=== PATIENT | female | born 1960 | race Two or more races ===

== ENCOUNTER 2024-08-05 09:48 | Inpatient (IN) | payer OTHER, MEDICAID ==
[~2024-08-05] VITALS: Ht 165.1 cm; Wt 77.1 kg
--- NOTE | 2024-08-05 10:02 | ECG ---
[facility] Test Date: 2024-08-05 Test Time: 09:57:10 Pat Name: LIZ CEE Department: ER Room: Gender: F Office Clinician: JERRY : 1960 Requested By: DEBORA HAMILTON Order Number: [id number] Reading MD: Robin Hernandez Measurements Intervals [place] Rate: 74 P: 56 MS: 165 QRS: 56 QRSD: 81 T: 43 QT: 383 QTc: 425 Interpretive Statements Sinus rhythm Low voltage, precordial leads Electronically Signed On 08-05-2024 12:54:02 PST by Robin Hernandez Please click the below link to view image of tracing.
--- NOTE | 2024-08-05 10:09 | ED.PDOC ---
HPI (NEURO) HPI Comments 63 y.o female sent to the ED by sheet rock taper helper with binocular diplopia today for high level of neurological care. Patient reports x 2-3 days having complaint, had an appointment today and had eye dilation with dizziness s/p examination. Patient denies any facial droops, slurred speech, nausea, vomiting, confusion, chest pain or SOB. Patient does mention feeling more tired than usual but no focal weakness or numbness reported. Patient's sheet rock taper helper sent a communication with the patient stating that the patient is having binocular diplopia and on his exam mild 6th nerve palsy right eye with vision distortion, headaches and polymyalgia rheumatica symptoms. Recommended workup for giant cell arteritis with ESR, CRP, +/- temporal artery biopsy, as well as MRI with and without contrast for possible optic neuritis. Patient additional complains of a headache located on bilateral temporal areas s/p lumbar puncture procedure that she was told ruled out MS back in March of 2024. Chief Complaint: Eye Problem Time Seen by MD: 09:55 Reviewed Notes: Nurses Notes, Medications, Allergies Information Source: Patient Mode of Arrival: Ambulatory Severity: Moderate Headache Severity: Moderate Onset: At rest Symptoms: Change of vision History of: Hypertension Modifying factors: Nothing Associated Signs and Symptoms: Blurred Vision Past Medical History PAST MEDICAL HISTORY: High Lipids, HTN Past Medical History (Other): chronic pain Surgical History (Other): lumbar puncture, bilateral feet and right hand. Constitutional: denies: chills, diaphoresis, fatigue, fever, malaise, sweats, weakness, others EENTM: reports: double vision (right eye ); denies: blurred vision, ear bleeding, ear discharge, ear drainage, ear pain, ear ringing, eye pain, eye redness, hearing loss, mouth pain, mouth swelling, nasal discharge, nose blee ding, nose congestion, nose pain, photophobia, tearing, throat pain, throat swelling, voice changes, others Respiratory: denies: cough, hemoptysis, orthopnea, SOB at rest, shortness of breath, SOB with excertion, stridor, wheezing, others Cardiovascular: denies: chest pain, dizzy spells, diaphoresis, Dyspnea on exertion, edema, irregular heart beat, left arm pain, lightheadedness, palpitations, PND, syncope, others Gastrointestinal: denies: abdomen distended, abdominal pain, blood streaked bowels, constipated, diarrhea, dysphagia, difficulty swallowing, hematemesis, m melly, nausea, poor appetite, poor fluid intake, rectal bleeding, rectal pain, vomiting, others Genitourinary: denies: abnormal vagina bleeding, burning, dyspareunia, dysuria, flank pain, frequency, hematuria, incontinence, pain, , vagina discharge, urgency, others Neurological: reports: headache; denies: dizziness, fainting, left sided numbness, left sided weakness, numbness, paresthesia, pre-existing deficit, right sided numbness, right sided weakness, seizure, speech problems, tingling, tremors, weakness, others Musculoskeletal: denies: back pain, gout, joint pain, joint swelling, muscle pain, muscle stiffness, neck pain, others Integumetry: denies: bruises, change in color, change in hair/nails, dryness, laceration, lesions, lumps, rash, wounds, others Allergic/Immunocompromised: denies: Difficulty Healing, Frequent Infections, Hives, Itching, others Hematologic/Lymphatic: denies: anemia, blood clots, easy bleeding, easy bruising, swollen glands, others Endocrine: denies: excessive hunger, excessive sweating, excessive thirst, excessive urination, flushing, intolerance to cold, intolerance to heat, unexplained weight gain, unexplained weight loss, others Psychiatric: denies: anxiety, bipolar disorder, depression, hopeless, panic disorder, schizophrenia, sleepless, suicidal, others All Other Systems: Reviewed and Negative Physical Exam General Appearance: No Apparent Distress HEENT: Other (Pupils symmetric and dilated, extraocular movements intact. Mild soft tissue tenderness bilateral temporal areas without soft tissue swelling or discoloration.) Neck: Full Range of Motion, Non-Tender, Normal Inspection Respiratory: Lungs Clear, No Accessory Muscle Use, No Respiratory Distress, Normal Breath Sounds Cardiovascular: No Edema, No JVD, Regular Rate/Rhythm Breast Exam: Deferred Gastrointestinal: Non Tender, Soft Genitalia: Deferred Pelvic: Deferred Rectal: Deferred Extremities: Normal inspection, Normal range of motion, Non-tender, No pedal edema Neurologic: Alert, Normal Affect, Normal Mood, Other (Ambulatory without dif ficulty. No gross focal deficit. Pupils symmetric and dilated. Extraocular movements intact, no other cranial nerve deficit appreciated.) Cerebellar Function: NOT DONE Reflexes: NOT DONE Skin: Dry, Normal Color, Warm Lymphatic: NOT DONE EKG EKG : Comments Sinus rhythm, rate 74, normal intervals, normal axis, normal QRS, no ST/T changes. Was a procedure done? Was a procedure done?: No Differential Diagnosis (SZ) Seizure: CVA/TIA, Hypocalcemia, Hypoglycemia, Hyponatremia, Hypoxemia, Mass Lesion, Encephalopathy CVA: Electrolyte Imbalance General Weakness: Dysrhythmia Headache: Migraine, Post Lumber Puncture, Intracerebral Hemorrhage, Subarachnoid Hemorrhage, Subdural Hemorrhage, Trigeminal Neuralgia, Other (Temporal arteritis, optic neuritis, polymyalgia rheumatica, among others) X-Ray, Labs, Meds, VS Vital Signs Date Time Temp Pulse Resp B/P (MAP) Pulse Ox O2 Delivery O2 Flow Rate FiO2 08/05/24 10:34 69 16 118/65 (82) 95 08/05/24 10:34 69 16 95 08/05/24 10:01 97.2 75 15 130/58 (82) 96 08/05/24 09:57 74 Lab Test 08/05/24 11:50 08/05/24 10:50 Range/Units Troponin I High Sensitivity 5 3 L </=34 ng/L White Blood Count 7.4 4.4-10.8 10^3/uL Red Blood Count 4.47 4.0-5.20 10^6/uL Hemoglobin 13.2 12.2-16.2 g/dL Hematocrit 38.7 36.0-46.0 % Mean Corpuscular Volume 86.6 80.0-100.0 fL Mean Corpuscular Hemoglobin 29.5 28.0-32.0 pg Mean Corpuscular Hemoglobin Concent 34.1 32.0-36.0 g/dL Red Cell Distribution Width 13.4 11.8-14.3 % Platelet Count 263 140-450 10^3/uL Mean Platelet Volume 6.7 L 6.9-10.8 fL Neutrophils (%) (Auto) 46.0 37.0-80.0 % Lymphocytes (%) (Auto) 44.5 10.0-50.0 % Monocytes (%) (Auto) 7.2 0.0-12.0 % Eosinophils (%) (Auto) 1.7 0.0-7.0 % Basophils (%) (Auto) 0.6 0.0-2.0 % Neutrophils # (Auto) 3.4 1.6-8.6 10 ^3/uL Lymphocytes # (Auto) 3.3 0.4-5.4 10 ^3/uL Monocytes # (Auto) 0.5 0-1.3 10 ^3/uL Eosinophils # (Auto) 0.1 0-0.8 10 ^3/uL Basophils # (Auto) 0 0-0.2 10 ^3/uL Nucleated Red Blood Cells 0.0 % Erythrocyte Sedimentation Rate 7 0-20 mm/hr Sodium Level 139 136-145 mmol/L Potassium Level 4.2 3.5-5.1 mmol/L Chloride Level 106 98-107 mmol/L Carbon Dioxide Level 28 20-31 mmol/L Anion Gap 5 5-15 Blood Urea Nitrogen 7 L 9-23 mg/dL Creatinine 0.79 0.550-1.02 mg/dL Glomerular Filtration Rate Calc 83 >90 mL/min BUN/Creatinine Ratio 8.9 L 10.0-20.0 Serum Glucose 93 74-106 mg/dL Calcium Level 10.0 8.7-10.4 mg/dL C-Reactive Protein High Sensitivity 0.02 <1.0 mg/dL B-Type Natriuretic Peptide 28.49 0-100 pg/mL Current Medications Medications (Trade) Dose Ordered Sig/Teddy Route Start Time Stop Time Status Last Admin Acetaminophen/ Hydrocodone Bitart (Onset 5/325MG Tab) 2 tab ONCE ONCE PO 08/05/24 10:15 08/05/24 10:16 DC 08/05/24 10:30 [place] [id number] Ph: [phone] DIAGNOSTIC IMAGING Diagnostic Imaging Report : [id number] Signed PATIENT: LIZ CEE DAWNACCT: [id number] UNIT: [id number] : 1960 LOC: ER ROOM / BED: / AGE / SEX: 63 / F ADM STATUS: REG ER SERVICE 1008 ORDERING PHYSICIAN: DEBORA ORTIZ MD PROCEDURE(s): HWOCT - HEAD WITHOUT CONTRAST REASON: R eye diplopia ORDER NUMBER(s): [id number], ACCESSION NUMBER(s): [id number] EXAM: CT HEAD WITHOUT CONTRAST HISTORY: R eye diplopia COMPARISON: None TECHNIQUE: Axial images of the head were obtained and reformatted in coronal and sagittal planes. All CT scans at this medical facility are performed using dose modulation ambika hniques as appropriate to a performed exam including the following: Automated exposure control was utilized; adjustment of the MA and/or KV according to patient size; and use of iterative reconstruction technique. CT Dose: CTDI volume is 53 mGy. Dose-length product is a 63 mGy*cm FINDINGS: There is no evidence of acute intracranial hemorrhage, mass, mass effect midline shift. There is no hydrocephalus or extra-axial fluid collection. Malik-white matter differentiation is maintained. The visualized paranasal sinuses and mastoid air cells are clear. The calvarium is intact. IMPRESSION: 1. No acute intracranial process. HS:Y ATED BY: NIC BARNETT MD DICTATED DATE/TIME: 08/05/24 1040 SIGNED BY: NIC BARNETT MD SIGNED DATE/TIME: 08/05/24 1040 CC: X-Ray, Labs, Meds, VS Comment 63-year-old female with a history of hypertension, hyperlipidemia and chronic pain referred by sheet rock taper helper for diplopia and associated headache Vitals remarkable for BP 130/58 Exam remarkable for bilateral pupillary dilatation (of note, patient's pupils were dilated by sheet rock taper helper prior to presentation in the ED), bilateral temporal soft tissue tenderness Rhythm strip independently interpreted by me: Sinus rhythm, rate 74, no ectopy. CT head unremarkable CBC, basic metabolic panel, BNP, troponins, ESR and CRP unremarkable for any abnormality of acute significance Patient treated with the following in the ED: Onset 5/325 mg, 2 tabs p.o. for headache On re-evaluation, patient states pain has improved. Vitals were stable. No new neurologic changes. Plan is to admit the patient for brain MRI and Neurology evaluation. Time of 1ST Reevaluation: 10:38 Reevaluation 1ST: Unchanged Patient Education/Counseling: Diagnosis, Treatment, Prognosis Family Education/Counseling: No Family Present Departure 1 Departure Time of Disposition: 11:30 Impression: Primary Impression: Diplopia Additional Impression: Headache Qualified Codes: R51.9 - Headache, unspecified; G89.29 - Other chronic pain Disposition: 09 ADMITTED INPATIENT Admit to: Tele Condition: Guarded Critical Care Note Critical Care Time?: No Stability Stability form required: No Heart Score Heart Score: Heart Score Response (Comments) Value History N/A 0 EKG N/A 0 Age N/A 0 Risk Factors N/A 0 Troponin N/A 0 Total 0 I personally scribed for DEBORA ORTIZ MD ([facility]) on 08/05/24 at 10:09. Electronically submitted by Mahogany Giraldo ([facility]). I personally scribed for DEBORA ORTIZ MD ([facility]) on 08/05/24 at 1 0:44. Electronically submitted by Mahogany Giraldo ([facility]). I personally scribed for DEBORA ORTIZ MD ([facility]) on 08/05/24 at 10:54. Electronically submitted by Mahogany Giraldo ([facility]). DEBORA ORTIZ MD Aug 05, 2024 10:09
[2024-08-05] MEDS: HYDROcodone-ACET 5/325MG TAB PO ONE ×2 (10:30→18:46)
--- NOTE | 2024-08-05 10:40 | DVH ---
EXAM: CT HEAD WITHOUT CONTRAST HISTORY: R eye diplopia COMPARISON: None TECHNIQUE: Axial images of the head were obtained and reformatted in coronal and sagittal planes. All CT scans at this medical facility are performed using dose modulation techniques as appropriate t o a performed exam including the following: Automated exposure control was utilized; adjustment of th e MA and/or KV according to patient size; and use of iterative reconstruction technique. CT Dose: CTDI volume is 53 mGy. Dose-length product is a 63 mGy*cm FINDINGS: There is no evidence of acute intracranial hemorrhage, mass, mass effect midline shift. There is no h ydrocephalus or extra-axial fluid collection. Malik-white matter differentiation is maintained. The visualized paranasal sinuses and mastoid air cells are clear. The calvarium is intact. IMPRESSION: 1. No acute intracranial process. HS:Y
[2024-08-05 11:01] LABS: Basophils # (auto) 0 10 ^3/uL (0-0.2); Basophils % (auto) 0.6 % (0.0-2.0); Eosinophils # (auto) 0.1 10 ^3/uL (0-0.8); Eosinophils % (auto) 1.7 % (0.0-7.0); Hematocrit 38.7 % (36.0-46.0); Hemoglobin 13.2 g/dL (12.2-16.2); Lymphocytes # (auto) 3.3 10 ^3/uL (0.4-5.4); Lymphocytes % (auto) 44.5 % (10.0-50.0); Mean Corpuscular Hemoglobin 29.5 pg (28.0-32.0); Mean Corpuscular Hgb Conc. 34.1 g/dL (32.0-36.0); Mean Corpuscular Volume 86.6 fL (80.0-100.0); Monocytes # (auto) 0.5 10 ^3/uL (0-1.3); Monocytes % (auto) 7.2 % (0.0-12.0); Neutrophils # (auto) 3.4 10 ^3/uL (1.6-8.6); Platelet Count (auto) 263 10^3/uL (140-450); Red Blood Cells 4.47 10^6/uL (4.0-5.20); Red Cell Distribution Width 13.4 % (11.8-14.3); White Blood Cell 7.4 10^3/uL (4.4-10.8)
[2024-08-05 11:11] LABS: Chloride 106 mmol/L (98-107); Potassium 4.2 mmol/L (3.5-5.1); Sodium 139 mmol/L (136-145)
[2024-08-05 11:12] LABS: Anion Gap 5 (5-15); Carbon Dioxide 28 mmol/L (20-31)
[2024-08-05 11:17] LABS: BUN/Creatinine Ratio 8.9 (10.0-20.0); Glucose 93 mg/dL (74-106)
[2024-08-05 11:18] LABS: CRP High Sensitivity 0.02 mg/dL (<1.0)
[2024-08-05 11:19] LABS: Blood Urea Nitrogen 7 mg/dL (9-23)
[2024-08-05 12:11] LABS: Erythrocyte Sedimentation Rate 7 mm/hr (0-20)
[2024-08-05 13:36] LABS: Urine Bacteria FEW /hpf (None Seen); Urine Blood Negative /uL (Negative); Urine Clarity Clear (Clear); Urine Color Yellow (Yellow); Urine Protein, UAD Negative (Negative); Urine Specific Gravity 1.015 (1.001-1.035); Urine Urobilinogen Normal (Negative); Urine WBC 89 /hpf (0 - 5)
[2024-08-05] MEDS ORDERED: CYCL0.05 (17:22)
[2024-08-05] MEDS ORDERED: LOSA-534 PO (17:22)
[2024-08-05] MEDS ORDERED: CELE1CAP29 PO (17:22)
[2024-08-05] MEDS ORDERED: ONDA-188 PO (17:22)
[2024-08-05] MEDS ORDERED: CYCL-611 PO (17:22)
[2024-08-05] MEDS ORDERED: FLUT50SP NAS (17:22)
[2024-08-05] MEDS ORDERED: SERT-206 PO (17:22)
[2024-08-05] MEDS ORDERED: AMLO1TAB21 PO (17:22)
[2024-08-05] MEDS ORDERED: ROSU10TA64 PO (17:22)
[2024-08-05] MEDS ORDERED: SODIUM CHLORIDE 0.9% 1,000 ML IV SCH (19:45)
[2024-08-05] MEDS ORDERED: ACETAMINOPHEN 325 MG TAB PO PRN (19:45)
[2024-08-05] MEDS ORDERED: hydrALAZINE HCL 20 MG/ML VL IV PRN ×2 (19:45→23:00)
[2024-08-05] MEDS ORDERED: ONDANSETRON HCL 4 MG/2 ML VIAL IV PRN ×2 (19:45→23:00)
[2024-08-05] MEDS ORDERED: HYDROcodone-ACET 5/325MG TAB PO PRN (19:45)
[2024-08-05] MEDS ORDERED: DOCUSATE SOD 100 MG CAP PO PRN ×2 (19:45→23:00)
--- NOTE | 2024-08-05 21:26 | DVHHP2 ---
History of Present Illness Reason for Visit: Headache Review of Systems Allergies: Coded Allergies: NO KNOWN ALLERGIES (Unverified , 08/05/24) Medications Current Medications Medications Dose Ordered Sig/Teddy Route Start Time Stop Time Status Last Admin Dose Admin Losartan Potassium 25 mg DAILY PO 08/06/24 10:00 Hydralazine HCl 10 mg Q6HP PRN IV 08/05/24 19:45 Atorvastatin Calcium 10 mg HS PO 08/05/24 22:00 Sodium Chloride 1,000 ml @ 60 mls/hr [id number] IV 08/05/24 19:45 Acetaminophen/ Hydrocodone Bitart 1 tab Q4HP PRN PO 08/05/24 19:45 Ondansetron HCl 4 mg Q4HP PRN IV 08/05/24 19:45 Docusate Sodium 100 mg BIDPRN PRN PO 08/05/24 19:45 Acetaminophen 650 mg Q6HP PRN PO 08/05/24 19:45 Exam Vital Signs Vital Signs Date Time Temp Pulse Resp B/P (MAP) Pulse Ox O2 Delivery O2 Flow Rate FiO2 08/05/24 20:03 97.4 62 18 108/64 (79) 95 97.4 Labs/Xrays Labs Test 08/05/24 13:51 08/05/24 12:45 08/05/24 10:50 Range/Units Troponin I High Sensitivity 4 </=34 ng/L Urine Color Yellow Yellow Urine Clarity Clear Clear Urine pH 6.0 5.0-9.0 Urine Specific [place] 1.015 1.001-1.035 Urine Protein Negative Negative Urine Ketones Negative Negative Urine Blood Negative Negative /uL Urine Nitrite Negative Negative Urine Bilirubin Negative Negative Urine Urobilinogen Normal Negative mg/dL Urine Leukocyte Esterase 3+ Negative /uL Urine RBC 1 0 - 4 /hpf Urine WBC 89 0 - 5 /hpf Urine Squamous Epithelial Cells Few <5 /hpf Urine Bacteria Few H None Seen /hpf Urine Glucose Normal Normal mg/dL White Blood Count 7.4 4.4-10.8 10^3/uL Red Blood Count 4.47 4.0-5.20 10^6/uL Hemoglobin 13.2 12.2-16.2 g/dL Hematocrit 38.7 36.0-46.0 % Mean Corpuscular Volume 86.6 80.0-100.0 fL Mean Corpuscular Hemoglobin 29.5 28.0-32.0 pg Mean Corpuscular Hemoglobin Concent 34.1 32.0-36.0 g/dL Red Cell Distribution Width 13.4 11.8-14.3 % Platelet Count 263 140-450 10^3/uL Mean Platelet Volume 6.7 L 6.9-10.8 fL Neutrophils (%) (Auto) 46.0 37.0-80.0 % Lymphocytes (%) (Auto) 44.5 10.0-50.0 % Monocytes (%) (Auto) 7.2 0.0-12.0 % Eosinophils (%) (Auto) 1.7 0.0-7.0 % Basophils (%) (Auto) 0.6 0.0-2.0 % Neutrophils # (Auto) 3.4 1.6-8.6 10 ^3/uL Lymphocytes # (Auto) 3.3 0.4-5.4 10 ^3/uL Monocytes # (Auto) 0.5 0-1.3 10 ^3/uL Eosinophils # (Auto) 0.1 0-0.8 10 ^3/uL Basophils # (Auto) 0 0-0.2 10 ^3/uL Nucleated Red Blood Cells 0.0 % Erythrocyte Sedimentation Rate 7 0-20 mm/hr Sodium Level 139 136-145 mmol/L Potassium Level 4.2 3.5-5.1 mmol/L Chloride Level 106 98-107 mmol/L Carbon Dioxide Level 28 20-31 mmol/L Anion Gap 5 5-15 Blood Urea Nitrogen 7 L 9-23 mg/dL Creatinine 0.79 0.550-1.02 mg/dL Glomerular Filtration Rate Calc 83 >90 mL/min BUN/Creatinine Ratio 8.9 L 10.0-20.0 Serum Glucose 93 74-106 mg/dL Calcium Level 10.0 8.7-10.4 mg/dL C-Reactive Protein High Sensitivity 0.02 <1.0 mg/dL B-Type Natriuretic Peptide 28.49 0-100 pg/mL Assessment/Plan My Orders Orders - IRWIN SAHU DNP Procedure Category Date Status Time Losartan Tablet PHA 08/06/24 In Process (Cozaar Tablet) 10:00 Hydralazine Injection PHA 08/05/24 In Process (Apresoline Inject 19:45 Atorvastatin (Lipitor) PHA 08/05/24 In Process 22:00 Allergies JO 08/05/24 In Process 19:37 Code Status CODE 08/05/24 Transmitted 19:37 Sodium Chloride 0.9% PHA 08/05/24 In Process 19:45 Oxygen Per Hour RT 08/05/24 Transmitted 19:37 Hydrocodone-Acet PHA 08/05/24 In Process 5/325mg Tab (Ray 19:45 Ondansetron Hcl PHA 08/05/24 In Process (Zofran) 19:45 Docusate Sodium PHA 08/05/24 In Process Capsule (Colace 19:45 Complete Blood Count LAB 08/06/24 Verified 04:00 Comprehensive LAB 08/06/24 Verified Metabolic Panel 04:00 Condition: Serious JO 08/05/24 In Process 19:37 Acetaminophen Tablet PHA 08/05/24 In Process (Tylenol Tablet) 19:45 Bedrest With Bathroom JO 08/05/24 In Process Privileg 19:37 Sequential JO 08/05/24 In Process Compression Device Admit ADMIT 08/05/24 Transmitted 21:24 Nitroglycerin PHA 08/05/24 Logged Sublingual (Ntrostat 21:30 Morphine Sulfate [facility] 08/05/24 Logged Injection 21:30 Notify Of Changes [facility] 08/05/24 In Process From Base 21:24 Director Investor Relations For [facility] 08/05/24 In Process 24 Hours 21:24 Emergency Dysrhythmia JO 08/05/24 In Process Protocol 21:24 Rhythm Strips Once JO 08/05/24 In Process Every Shift 21:24 Oxygen By Nasal RT 08/05/24 Transmitted Cannula 21:24 IRWIN SAHU DNP Aug 05, 2024 21:26
[2024-08-05] MEDS ORDERED: MORPHINE SULFATE INJ 2 MG/ml SYRG IV PRN ×2 (21:30→23:00)
[2024-08-05] MEDS ORDERED: NITROGLYCERIN 0.4 MG SL TAB SL PRN ×2 (21:30→23:00)
[2024-08-05] MEDS: ATORVASTATIN 20 MG TAB PO SCH (22:00)
[2024-08-05] MEDS: SODIUM CHLORIDE 0.9% 1,000 ML IV ONE (23:19)
[2024-08-06] VITALS (7 sets, daily range): BP systolic 114–132; BP diastolic 60–77; PULSE 51–78; RESP 16–19; TEMP 97.6–97.8; O2SAT 94–98
--- NOTE | 2024-08-06 01:18 | DVHHP2 ---
MARA WASHINGTON CEMENT CONTRACTOR 08/06/24 0118: History of Present Illness Reason for Visit: Double vision History of Present Illness 63 year-old female with past medical history of hypertension, hyperlipidemia Presents with complaints of double vision times three days. Patient states she was sent to the emergency department by her log loader for Evaluation of giant cell arteritis Or optic neuritis. Patient is also endorsing tenderness To bilateral temporal regions Traveling behind The ears. States she has also been having trouble with balance. During the emergency department of evaluation Labs were unremarkable, ESR 7, C reactive protein 0.02, CT head no acute intracranial abnormality. Denies facial droop, unilateral deficits, Or additional loss of sensation. There are no complaints of fevers, chills, Shortness of breath, chest pain, palpitations, nausea, vomiting. Cardiovascular: HTN, hyperipidemia Smoke: No ALCOHOL: none Drugs: None Lives: with Family Review of Systems Constitutional: No: Fever, Chills, Sweats, Weakness, Malaise, Other Eyes: Vision change; No: Pain, Conjunctivae inflammation, Eyelid inflammation, Other, Redness ENT: No: Ear pain, Ear discharge, Nose pain, Nose discharge, Nose congestion, Mouth pain, Mouth swelling, Throat pain, Throat swelling, Other Respiratory: No: Cough, Dry, Shortness of breath, SOB with excertion, Wheezing, Hemoptysis, Pleuritic Pain, Sputum, Wheezing, Other Cardiovascular: No: Chest Pain, Palpitations, Orthopnea, Paroxysmal Noc. Dyspnea, Edema, Lt Headedness, Other Gastrointestinal: No: Nausea, Vomiting, Abdominal Pain, Diarrhea, Constipation, Melena, Hematochezia, Other Genitourinary: No Dysuria, No Frequency, No Incontinence, No Hematuria, No Retention, No Other Musculoskeletal: No: other, neck pain, shoulder pain, arm pain, back pain, hand pain, leg pain, foot pain Skin: No: Rash, Lesions, Jaundice, Bruising, Other Neurological: Incoordination; No: Weakness, Numbness, Change in speech, Confusion, Seizures, Other Allergies: Coded Allergies: NO KNOWN ALLERGIES (Unverified , 08/05/24) Medications Current Medications Medications Dose Ordered Sig/Teddy Route Start Time Stop Time Status Last Admin Dose Admin Losartan Potassium 25 mg DAILY PO 08/06/24 10:00 Atorvastatin Calcium 10 mg HS PO 08/05/24 22:00 08/05/24 22:00 10 MG Nitroglycerin 0.4 mg Q5MINP PRN SL 08/05/24 21:30 Morphine Sulfate 2 mg Q30M PRN IV 08/05/24 21:30 Hydralazine HCl 10 mg Q6HP PRN IV 08/05/24 23:00 Docusate Sodium 100 mg BIDPRN PRN PO 08/05/24 23:00 Acetaminophen 650 mg Q6HP PRN PO 08/05/24 23:00 Ondansetron HCl 4 mg Q4HP PRN IV 08/05/24 23:00 Enoxaparin Sodium 40 mg DAILY SC 08/06/24 10:00 Nitroglycerin 0.4 mg Q5MINP PRN SL 08/05/24 23:00 Morphine Sulfate 2 mg Q30M PRN IV 08/05/24 23:00 Ceftriaxone Sodium 50 ml @ 100 mls/hr DAILY@09 IV 08/06/24 09:00 Exam Vital Signs Vital Signs Date Time Temp Pulse Resp B/P (MAP) Pulse Ox O2 Delivery O2 Flow Rate FiO2 08/05/24 20:03 97.4 62 18 108/64 (79) 95 97.4 General Appearance: Alert, Oriented X3, Cooperative, mild distress HEENT: Atraumatic, PERRLA Respiratory: Clear to auscultation, Normal air movement Cardiovascular: Regular rate, Normal S1 Abdominal: Normal bowel sounds, Soft, No tenderness Extremities: No clubbing, No cyanosis, No edema Skin: No rashes, No breakdown Neuro: Normal speech, Strength at 5/5 X4 ext, Sensation intact Psych/Mental Status: Mental status NL, Mood NL Labs/Xrays Labs Test 08/05/24 13:51 08/05/24 12:45 08/05/24 10:50 Range/Units Troponin I High Sensitivity 4 </=34 ng/L Urine Color Yellow Yellow Urine Clarity Clear Clear Urine pH 6.0 5.0-9.0 Urine Specific [place] 1.015 1.001-1.035 Urine Protein Negative Negative Urine Ketones Negative Negative Urine Blood Negative Negative /uL Urine Nitrite Negative Negative Urine Bilirubin Negative Negative Urine Urobilinogen Normal Negative mg/dL Urine Leukocyte Esterase 3+ Negative /uL Urine RBC 1 0 - 4 /hpf Urine WBC 89 0 - 5 /hpf Urine Squamous Epithelial Cells Few <5 /hpf Urine Bacteria Few H None Seen /hpf Urine Glucose Normal Normal mg/dL White Blood Count 7.4 4.4-10.8 10^3/uL Red Blood Count 4.47 4.0-5.20 10^6/uL Hemoglobin 13.2 12.2-16.2 g/dL Hematocrit 38.7 36.0-46.0 % Mean Corpuscular Volume 86.6 80.0-100.0 fL Mean Corpuscular Hemoglobin 29.5 28.0-32.0 pg Mean Corpuscular Hemoglobin Concent 34.1 32.0-36.0 g/dL Red Cell Distribution Width 13.4 11.8-14.3 % Platelet Count 263 140-450 10^3/uL Mean Platelet Volume 6.7 L 6.9-10.8 fL Neutrophils (%) (Auto) 46.0 37.0-80.0 % Lymphocytes (%) (Auto) 44.5 10.0-50.0 % Monocytes (%) (Auto) 7.2 0.0-12.0 % Eosinophils (%) (Auto) 1.7 0.0-7.0 % Basophils (%) (Auto) 0.6 0.0-2.0 % Neutrophils # (Auto) 3.4 1.6-8.6 10 ^3/uL Lymphocytes # (Auto) 3.3 0.4-5.4 10 ^3/uL Monocytes # (Auto) 0.5 0-1.3 10 ^3/uL Eosinophils # (Auto) 0.1 0-0.8 10 ^3/uL Basophils # (Auto) 0 0-0.2 10 ^3/uL Nucleated Red Blood Cells 0.0 % Erythrocyte Sedimentation Rate 7 0-20 mm/hr Sodium Level 139 136-145 mmol/L Potassium Level 4.2 3.5-5.1 mmol/L Chloride Level 106 98-107 mmol/L Carbon Dioxide Level 28 20-31 mmol/L Anion Gap 5 5-15 Blood Urea Nitrogen 7 L 9-23 mg/dL Creatinine 0.79 0.550-1.02 mg/dL Glomerular Filtration Rate Calc 83 >90 mL/min BUN/Creatinine Ratio 8.9 L 10.0-20.0 Serum Glucose 93 74-106 mg/dL Calcium Level 10.0 8.7-10.4 mg/dL C-Reactive Protein High Sensitivity 0.02 <1.0 mg/dL B-Type Natriuretic Peptide 28.49 0-100 pg/mL Assessment/Plan Assessment/Plan There were significant delays in admission Due to hospital staff errors. Patient placed for admission for the wrong admitting team. Diplopia CVA r/o Optic Neuritis r/o Hypertension Plan Admit telemetry Neurology consult. MRI brain without contrast. Asa, statin. Physical therapy evaluation. Continue home medication. As needed anti-hypertensive for optimal BP management GI ppx protonix / DVT ppx lovenox Plan discussed with: Patient My Orders Orders - MARA WASHINGTON NP Procedure Category Date Status Time Hydralazine Injection PHA 08/05/24 In Process (Apresoline Inject 23:00 Admit ADMIT 08/05/24 Transmitted 22:59 Code Status CODE 08/05/24 Transmitted 22:59 Vital Signs JO 08/05/24 In Process 22:59 Review Orders With JO 08/05/24 In Process Adm. 22:59 Encourage Activity As JO 08/05/24 In Process Tolerate 22:59 Consistent DIET 08/06/24 Transmitted Carb(Ccho)Diabetes Breakfast Oxygen By Face Mask RT 08/05/24 Transmitted 22:59 Docusate Sodium PHA 08/05/24 In Process Capsule (Colace 23:00 Acetaminophen Tablet PHA 08/05/24 In Process (Tylenol Tablet) 23:00 Notify Md Of Changes JO 08/05/24 In Process From Base 22:59 Advance Directive JO 08/05/24 In Process 22:59 Basic Metabolic Panel LAB 08/06/24 Logged 05:00 Basic Metabolic Panel LAB 08/07/24 Verified 05:00 Basic Metabolic Panel LAB 08/08/24 Verified 05:00 Complete Blood Count LAB 08/06/24 Logged 05:00 Complete Blood Count LAB 08/07/24 Verified 05:00 Complete Blood Count LAB 08/08/24 Verified 05:00 Routine Bacterial TOMMY 08/05/24 Logged Culture 22:59 Patient Condition ORDERS 08/05/24 Transmitted 22:59 Allergies JO 08/05/24 In Process 22:59 Ondansetron Hcl PHA 08/05/24 In Process (Zofran) 23:00 Enoxaparin Sodium PHA 08/06/24 In Process (Lovenox) 10:00 Sequential JO 08/05/24 In Process Compression Device Nitroglycerin PHA 08/05/24 In Process Sublingual (Ntrostat 23:00 Morphine Sulfate PHA 08/05/24 In Process Injection 23:00 Stat Ekg For Chest JO 08/05/24 In Process Pain 22:59 Notify Of Changes [facility] 08/05/24 In Process From Base 22:59 Educational Guidance Counselor For [facility] 08/05/24 In Process 24 Hours 22:59 Emergency Dysrhythmia [facility] 08/05/24 In Process Protocol 22:59 Rhythm Strips Once [facility] 08/05/24 In Process Every Shift 22:59 Oxygen By Nasal RT 08/05/24 Transmitted Cannula 22:59 Sodium Chloride 0.9% PHA 08/05/24 In Process 23:00 Brain Head Wo Contrast MRI 08/05/24 Logged 22:59 Pt Request For Service PT 08/05/24 Logged 22:59 * Neurology Consult CONS 08/05/24 Transmitted 23:10 Ceftriaxone 1gm/50ml PHA 08/06/24 In Process D5w (Rocephin) 09:00 Date of Service: Aug 06, 2024 Billing Provider: OLIVERIO DHALIWAL MD Common Visit Codes: NOT BILLABLE OLIVERIO DHALIWAL MD 08/06/24 1351: Review of Systems Allergies: Coded Allergies: NO KNOWN ALLERGIES (Unverified , 08/05/24) Additional Comments Additional Comments Additional Comments Patient is seen, evaluated and admitted by nurse practitioner this morning. Patient's chart is reviewed and evaluated by me. I agree with the nurse practitioner's evaluation, documentation, assessment and care plan as outlined. MARA WASHINGTON NP Aug 06, 2024 01:18 OLIVERIO DHALIWAL MD Aug 06, 2024 13:51
[2024-08-06] MEDS: ACETAMINOPHEN 325 MG TAB PO PRN (04:13)
[2024-08-06 07:15] LABS: Basophils # (auto) 0 10 ^3/uL (0-0.2); Basophils % (auto) 0.6 % (0.0-2.0); Eosinophils # (auto) 0.2 10 ^3/uL (0-0.8); Eosinophils % (auto) 3.3 % (0.0-7.0); Hematocrit 36.9 % (36.0-46.0); Hemoglobin 12.6 g/dL (12.2-16.2); Lymphocytes # (auto) 2.9 10 ^3/uL (0.4-5.4); Lymphocytes % (auto) 50.7 % (10.0-50.0); Mean Corpuscular Hemoglobin 29.7 pg (28.0-32.0); Mean Corpuscular Volume 87.2 fL (80.0-100.0); Monocytes # (auto) 0.5 10 ^3/uL (0-1.3); Monocytes % (auto) 7.9 % (0.0-12.0); Neutrophils # (auto) 2.2 10 ^3/uL (1.6-8.6); Neutrophils % (auto) 37.5 % (37.0-80.0); Nucleated Red Blood Cells % 0.1 %; Platelet Count (auto) 217 10^3/uL (140-450); Red Blood Cells 4.24 10^6/uL (4.0-5.20); Red Cell Distribution Width 13.3 % (11.8-14.3); White Blood Cell 5.8 10^3/uL (4.4-10.8)
[2024-08-06 07:32] LABS: Anion Gap 6 (5-15); Carbon Dioxide 29 mmol/L (20-31); Chloride 105 mmol/L (98-107); Potassium 4.4 mmol/L (3.5-5.1); Sodium 140 mmol/L (136-145)
[2024-08-06 07:33] LABS: Calcium 9.2 mg/dL (8.7-10.4)
[2024-08-06 07:38] LABS: Blood Urea Nitrogen 9 mg/dL (9-23); Glucose 82 mg/dL (74-106)
[2024-08-06] MEDS: cefTRIAXone 1GM/50ML D5W 50 ML IV SCH (09:14)
[2024-08-06] MEDS: ENOXAPARIN SOD 40 MG/0.4 ML SYRINGE SC SCH (09:15)
[2024-08-06] MEDS: LOSARTAN POTASSIUM 25 MG TAB PO SCH (09:15)
[2024-08-06] MEDS: HYDROcodone-ACET 5/325MG TAB PO PRN (09:16)
[2024-08-06] MEDS: ASPirin 81 mg TAB PO ONE (12:00)
[2024-08-06 12:19] LABS: Triglycerides 120 mg/dL (< 150)
[2024-08-06 12:20] LABS: LDL Cholesterol 60 mg/dL (< 100)
[2024-08-06 12:21] LABS: Cholesterol 136 mg/dL (< 200); HDL Cholesterol 58 mg/dL (40-59)
--- NOTE | 2024-08-06 13:38 | DVHINCON2 ---
Date of service: Aug 06, 2024 History of Present Illness 63 year-old female with past medical history of hypertension, hyperlipidemia Presents with complaints of double vision times three days. Patient states she was sent to the emergency department by her pharmaceutical analyst for Evaluation of giant cell arteritis Or optic neuritis. Patient is also endorsing tenderness To bilateral temporal regions Traveling behind The ears. States she has also been having trouble with balance. During the emergency department of evaluation Labs were unremarkable, ESR 7, C reactive protein 0.02, CT head no acute intracranial abnormality. Denies facial droop, unilateral deficits, Or additional loss of sensation. There are no complaints of fevers, chills, Shortness of breath, chest pain, palpitations, nausea, vomiting. Cardiovascular: HTN, hyperipidemia Smoke: No ALCOHOL: none Drugs: None Lives: with Family Past Medical History reviewed Family History: Patient reports no known family medical history. Allergies: Coded Allergies: NO KNOWN ALLERGIES (Unverified , 08/05/24) Home Meds Reported Medications Fluticasone Propionate (Nasal) (Fluticasone Propionate) 50 Mcg/Act Spr, 1 SPRAY CHANDRA DAILY 08/05/24 Ondansetron HCl (Ondansetron Hydrochloride) 4 Mg Tab, 1 TAB PO BID 08/05/24 Cyclosporine (Ophth) (Restasis) 0.05 % Emu 08/05/24 Losartan Potassium (Losartan Potassium) 50 Mg Tab, 1 TAB PO DAILY 08/05/24 Amlodipine Besylate (Amlodipine Besylate) 2.5 Mg Tab, 1 TAB PO DAILY 08/05/24 Cyclobenzaprine HCl (Cyclobenzaprine Hydrochlo) 10 Mg Tab, 1 TAB PO 08/05/24 Celecoxib (Celecoxib) 200 Mg Cap, 1 CAP PO DAILY 08/05/24 Rosuvastatin Calcium (Rosuvastatin Calcium) 10 Mg Tab, 1 TAB PO 08/05/24 Sertraline Hcl (Sertraline Hcl) 50 Mg Tab, 1 TAB PO DAILY 08/05/24 Current Medications Current Medications Medications (Trade) Dose Ordered Sig/Teddy Route PRN Reason Start Time Stop Time Status Last Admin Losartan Potassium (Cozaar Tablet) 25 mg DAILY PO 08/06/24 10:00 08/06/24 09:15 Hydralazine HCl (Apresoline Injection) 10 mg Q6HP PRN IV SBP>150 08/05/24 19:45 08/05/24 23:09 DC Atorvastatin Calcium (Lipitor) 10 mg HS PO 08/05/24 22:00 08/05/24 22:00 Sodium Chloride 1,000 ml @ 60 mls/hr [id number] IV 08/05/24 19:45 08/05/24 23:09 DC Acetaminophen/ Hydrocodone Bitart ([place] 5/325MG Tab) 1 tab Q4HP PRN PO MODERATE PAIN (4-6 PAIN SCALE) 08/05/24 19:45 08/05/24 23:09 DC Ondansetron HCl (Zofran) 4 mg Q4HP PRN IV NAUSEA / VOMITING 08/05/24 19:45 08/05/24 23:09 DC Docusate Sodium (Colace Capsule) 100 mg BIDPRN PRN PO FOR CONSTIPATION 08/05/24 19:45 08/05/24 23:09 DC Acetaminophen (Tylenol Tablet) 650 mg Q6HP PRN PO PAIN SCALE 1-3 OR TEMP>100.4 08/05/24 19:45 08/05/24 23:09 DC Nitroglycerin (Ntrostat Sublingual) 0.4 mg Q5MINP PRN SL FOR CHEST PAIN 08/05/24 21:30 Morphine Sulfate 2 mg Q30M PRN IV FOR CHEST PAIN 08/05/24 21:30 Hydralazine HCl (Apresoline Injection) 10 mg Q6HP PRN IV SBP>160 08/05/24 23:00 Docusate Sodium (Colace Capsule) 100 mg BIDPRN PRN PO FOR CONSTIPATION 08/05/24 23:00 Acetaminophen (Tylenol Tablet) 650 mg Q6HP PRN PO PAIN SCALE 1-3 OR TEMP>100.4 08/05/24 23:00 08/06/24 04:13 Ondansetron HCl (Zofran) 4 mg Q4HP PRN IV NAUSEA / VOMITING 08/05/24 23:00 Enoxaparin Sodium (Lovenox) 40 mg DAILY SC 08/06/24 10:00 08/06/24 09:15 Nitroglycerin (Ntrostat Sublingual) 0.4 mg Q5MINP PRN SL FOR CHEST PAIN 08/05/24 23:00 Morphine Sulfate 2 mg Q30M PRN IV FOR CHEST PAIN 08/05/24 23:00 Ceftriaxone Sodium 50 ml @ 100 mls/hr DAILY@09 IV 08/06/24 09:00 08/06/24 09:14 Acetaminophen/ Hydrocodone Bitart ([place] 5/325MG Tab) 1 tab Q4HPRN PRN PO MODERATE PAIN (4-6 PAIN SCALE) 08/06/24 05:15 08/06/24 09:16 Aspirin 81 mg DAILY PO 08/07/24 10:00 Review of Systems 10 pt ros otherwise negative Vital Signs Vital Signs Date Time Temp Pulse Resp B/P (MAP) Pulse Ox O2 Delivery O2 Flow Rate FiO2 08/06/24 09:15 129/77 08/06/24 09:00 97.6 51 16 98 97.6 08/06/24 08:00 Room Air* 0 21 Physical Exam nad s1 s2 rrr ctab soft nt/nd no edema Labs/Diagnostic Data Labs Test 08/06/24 05:29 08/05/24 13:51 08/05/24 12:45 08/05/24 10:50 Range/Units White Blood Count 5.8 4.4-10.8 10^3/uL Red Blood Count 4.24 4.0-5.20 10^6/uL Hemoglobin 12.6 12.2-16.2 g/dL Hematocrit 36.9 36.0-46.0 % Mean Corpuscular Volume 87.2 80.0-100.0 fL Mean Corpuscular Hemoglobin 29.7 28.0-32.0 pg Mean Corpuscular Hemoglobin Concent 34.0 32.0-36.0 g/dL Red Cell Distribution Width 13.3 11.8-14.3 % Platelet Count 217 140-450 10^3/uL Mean Platelet Volume 7.1 6.9-10.8 fL Neutrophils (%) (Auto) 37.5 37.0-80.0 % Lymphocytes (%) (Auto) 50.7 H 10.0-50.0 % Monocytes (%) (Auto) 7.9 0.0-12.0 % Eosinophils (%) (Auto) 3.3 0.0-7.0 % Basophils (%) (Auto) 0.6 0.0-2.0 % Neutrophils # (Auto) 2.2 1.6-8.6 10 ^3/uL Lymphocytes # (Auto) 2.9 0.4-5.4 10 ^3/uL Monocytes # (Auto) 0.5 0-1.3 10 ^3/uL Eosinophils # (Auto) 0.2 0-0.8 10 ^3/uL Basophils # (Auto) 0 0-0.2 10 ^3/uL Nucleated Red Blood Cells 0.1 % Sodium Level 140 136-145 mmol/L Potassium Level 4.4 3.5-5.1 mmol/L Chloride Level 105 98-107 mmol/L Carbon Dioxide Level 29 20-31 mmol/L Anion Gap 6 5-15 Blood Urea Nitrogen 9 9-23 mg/dL Creatinine 0.75 0.550-1.02 mg/dL Glomerular Filtration Rate Calc 88 >90 mL/min BUN/Creatinine Ratio 12.0 10.0-20.0 Serum Glucose 82 74-106 mg/dL Hemoglobin A1c 5.4 <5.7 % A1C Calcium Level 9.2 8.7-10.4 mg/dL Triglycerides Level 120 < 150 mg/dL Cholesterol Level 136 < 200 mg/dL LDL Cholesterol 60 < 100 mg/dL HDL Cholesterol 58 40-59 mg/dL Troponin I High Sensitivity 4 </=34 ng/L Urine Color Yellow Yellow Urine Clarity Clear Clear Urine pH 6.0 5.0-9.0 Urine Specific [place] 1.015 1.001-1.035 Urine Protein Negative Negative Urine Ketones Negative Negative Urine Blood Negative Negative /uL Urine Nitrite Negative Negative Urine Bilirubin Negative Negative Urine Urobilinogen Normal Negative mg/dL Urine Leukocyte Esterase 3+ Negative /uL Urine RBC 1 0 - 4 /hpf Urine WBC 89 0 - 5 /hpf Urine Squamous Epithelial Cells Few <5 /hpf Urine Bacteria Few H None Seen /hpf Urine Glucose Normal Normal mg/dL Erythrocyte Sedimentation Rate 7 0-20 mm/hr C-Reactive Protein High Sensitivity 0.02 <1.0 mg/dL B-Type Natriuretic Peptide 28.49 0-100 pg/mL Assessment diplopia obesity HTN HL r/o cva Plan/Recommendation pt gets shots by pain mgmt for occiptal neuralgia? ecg is SR and normal check echo head ct is - doubt pt has TIA/CVA hr and bp is normal ?rmi pending dc home when stable Plan discussed with: Patient ASIA DANIEL MD Aug 06, 2024 13:38
--- NOTE | 2024-08-06 17:47 | DVH ---
CLINICAL INDICATION: 63 years old, Female; visual disturbance , rule out CVA. COMPARISON: CT HEAD WITHOUT CONTRAST on DOS: 08/05/24 TECHNIQUE: Multisequence multiplanar MRI images of the brain were obtained without contrast. FINDINGS: No acute infarct or hemorrhage. No mass or midline shift. Scattered areas of T2/FLAIR hype rintense signal in the periventricular and subcortical white matter are nonspecific, but most likely sequelae of chronic small vessel ischemic disease.Ventricles and sulci are within normal limits. Basa l cisterns are patent. Cerebellum, brainstem, and midline structures are within normal limits. Mild m ucosal thickening of the paranasal sinuses. Orbits are grossly unremarkable. IMPRESSION: 1. No evidence of acute intracranial abnormality. 2. Nonacute findings as described above.
[2024-08-06] MEDS: SERTRALINE HCL 50 MG TAB PO ONE (22:59)
[2024-08-07] VITALS (8 sets, daily range): BP systolic 104–147; BP diastolic 68–76; PULSE 57–70; RESP 18–19; TEMP 97.3–98.2; O2SAT 94–98
[2024-08-07 06:50] LABS: Basophils # (auto) 0 10 ^3/uL (0-0.2); Basophils % (auto) 0.5 % (0.0-2.0); Eosinophils # (auto) 0.2 10 ^3/uL (0-0.8); Eosinophils % (auto) 3.4 % (0.0-7.0); Hematocrit 38.7 % (36.0-46.0); Lymphocytes # (auto) 2.6 10 ^3/uL (0.4-5.4); Lymphocytes % (auto) 52.3 % (10.0-50.0); Mean Corpuscular Hemoglobin 29.4 pg (28.0-32.0); Mean Corpuscular Hgb Conc. 33.6 g/dL (32.0-36.0); Mean Corpuscular Volume 87.5 fL (80.0-100.0); Monocytes # (auto) 0.4 10 ^3/uL (0-1.3); Monocytes % (auto) 8.3 % (0.0-12.0); Neutrophils # (auto) 1.8 10 ^3/uL (1.6-8.6); Neutrophils % (auto) 35.5 % (37.0-80.0); Platelet Count (auto) 226 10^3/uL (140-450); Red Blood Cells 4.42 10^6/uL (4.0-5.20); Red Cell Distribution Width 13.3 % (11.8-14.3); White Blood Cell 4.9 10^3/uL (4.4-10.8)
[2024-08-07 07:02] LABS: Anion Gap 6 (5-15); Carbon Dioxide 29 mmol/L (20-31); Chloride 104 mmol/L (98-107); Potassium 4.2 mmol/L (3.5-5.1); Sodium 139 mmol/L (136-145)
[2024-08-07 07:04] LABS: Calcium 9.2 mg/dL (8.7-10.4)
[2024-08-07 07:09] LABS: BUN/Creatinine Ratio 11.3 (10.0-20.0); Glucose 85 mg/dL (74-106)
[2024-08-07 07:17] LABS: Blood Urea Nitrogen 8 mg/dL (9-23)
[2024-08-07] MEDS: ASPirin 81 mg TAB PO SCH (09:24)
--- NOTE | 2024-08-07 10:05 | DVHSR ---
APPROVED REPORT EXAM: Two-dimensional and M-mode echocardiogram with Doppler and color Doppler. Blood Pressure: 129/77 mmHg INDICATION TIA? RISK FACTORS Height: 5'5", Weight: 171 DIMENSIONS LVDd3.6 (3.8-5.7cm)LA (2D)4.0 (1.9-4.0cm)Aortic Root2.9 (2.0-3.7cm) LVDs2.4 (2.5-4.0cm)LA (MM) (1.9-4.0cm)Aortic Cusp Exc1.8 (1.5-2.0cm) EF (%) 60.0 (55-70%)Rt. Atrium3.5 (1.9-4.0cm)Asc. Aorta cm IVSd1.0 (0.7-1.1cm)RV (D) (1.8-2.4cm) PWd0.9 (0.7-1.1cm) Mitral Valve MitralMitral Stenosis E wave1.03m/sMV Mean GR.mmHg A wave0.96m/sMV Peak GR.mmHg E/A ratio1.12D MVAcm2 DECEL [id number] 1/2 Timems Aortic Valve Aortic ValveAortic Stenosis V11.29m/Yissel Mean GR.4mmHg V21.30m/Yissel Peak GR.7mmHg LVOT Diameter1.8 (1.8-2.4cm)Doppler AVA2.52cm2 AI P 1/2 [id number] Pulmonic Valve V20.79m/s Tricuspid Valve TR Velocity2.59m/s [id number] Conclusion lvef 65% normal rv function, RV enlarged mild left atrium enlarged mild no severe valve abnormaliteis noted
[2024-08-07] MEDS: SERTRALINE HCL 50 MG TAB PO SCH (22:36)
[2024-08-08 01:00] VITALS: BP 123/73; PULSE 62; RESP 19; TEMP 98.1; O2SAT 95
[2024-08-08 05:00] VITALS: BP 111/67; PULSE 60; RESP 18; TEMP 97.9; O2SAT 96
[2024-08-08 07:39] LABS: Chloride 103 mmol/L (98-107); Potassium 4.2 mmol/L (3.5-5.1); Sodium 138 mmol/L (136-145)
[2024-08-08 07:40] LABS: Anion Gap 7 (5-15); Carbon Dioxide 28 mmol/L (20-31)
[2024-08-08 07:41] LABS: Basophils # (auto) 0 10 ^3/uL (0-0.2); Basophils % (auto) 0.5 % (0.0-2.0); Calcium 9.4 mg/dL (8.7-10.4); Eosinophils # (auto) 0.2 10 ^3/uL (0-0.8); Eosinophils % (auto) 3.5 % (0.0-7.0); Hematocrit 37.9 % (36.0-46.0); Hemoglobin 13.1 g/dL (12.2-16.2); Lymphocytes # (auto) 2.3 10 ^3/uL (0.4-5.4); Lymphocytes % (auto) 48.1 % (10.0-50.0); Mean Corpuscular Hemoglobin 29.7 pg (28.0-32.0); Mean Corpuscular Hgb Conc. 34.7 g/dL (32.0-36.0); Mean Corpuscular Volume 85.6 fL (80.0-100.0); Monocytes # (auto) 0.3 10 ^3/uL (0-1.3); Monocytes % (auto) 7.4 % (0.0-12.0); Neutrophils # (auto) 1.9 10 ^3/uL (1.6-8.6); Neutrophils % (auto) 40.5 % (37.0-80.0); Nucleated Red Blood Cells % 0.1 %; Platelet Count (auto) 215 10^3/uL (140-450); Red Blood Cells 4.42 10^6/uL (4.0-5.20); Red Cell Distribution Width 12.9 % (11.8-14.3); White Blood Cell 4.7 10^3/uL (4.4-10.8)
[2024-08-08 07:45] LABS: Glucose 95 mg/dL (74-106)
[2024-08-08 07:46] LABS: BUN/Creatinine Ratio 12.8 (10.0-20.0); Blood Urea Nitrogen 10 mg/dL (9-23)
[2024-08-08 08:00] VITALS: PULSE 60; PULSE 62; RESP 17; O2SAT 96
--- NOTE | 2024-08-08 08:42 | DVHDS2 ---
Discharge Summary Date of Admission Aug 05, 2024 at 21:24 Date of Discharge: Aug 08, 2024 Labs/Diagnostic Data: Laboratory Results Test 08/08/24 06:36 08/06/24 05:29 08/05/24 13:51 08/05/24 12:45 White Blood Count 4.7 10^3/uL (4.4-10.8) Red Blood Count 4.42 10^6/uL (4.0-5.20) Hemoglobin 13.1 g/dL (12.2-16.2) Hematocrit 37.9 % (36.0-46.0) Mean Corpuscular Volume 85.6 fL (80.0-100.0) Mean Corpuscular Hemoglobin 29.7 pg (28.0-32.0) Mean Corpuscular Hemoglobin Concent 34.7 g/dL (32.0-36.0) Red Cell Distribution Width 12.9 % (11.8-14.3) Platelet Count 215 10^3/uL (140-450) Mean Platelet Volume 7.0 fL (6.9-10.8) Neutrophils (%) (Auto) 40.5 % (37.0-80.0) Lymphocytes (%) (Auto) 48.1 % (10.0-50.0) Monocytes (%) (Auto) 7.4 % (0.0-12.0) Eosinophils (%) (Auto) 3.5 % (0.0-7.0) Basophils (%) (Auto) 0.5 % (0.0-2.0) Neutrophils # (Auto) 1.9 10 ^3/uL (1.6-8.6) Lymphocytes # (Auto) 2.3 10 ^3/uL (0.4-5.4) Monocytes # (Auto) 0.3 10 ^3/uL (0-1.3) Eosinophils # (Auto) 0.2 10 ^3/uL (0-0.8) Basophils # (Auto) 0 10 ^3/uL (0-0.2) Nucleated Red Blood Cells 0.1 % Sodium Level 138 mmol/L (136-145) Potassium Level 4.2 mmol/L (3.5-5.1) Chloride Level 103 mmol/L (98-107) Carbon Dioxide Level 28 mmol/L (20-31) Anion Gap 7 (5-15) Blood Urea Nitrogen 10 mg/dL (9-23) Creatinine 0.78 mg/dL (0.550-1.02) Glomerular Filtration Rate Calc 84 mL/min (>90) BUN/Creatinine Ratio 12.8 (10.0-20.0) Serum Glucose 95 mg/dL (74-106) Calcium Level 9.4 mg/dL (8.7-10.4) Hemoglobin A1c 5.4 % A1C (<5.7) Triglycerides Level 120 mg/dL (< 150) Cholesterol Level 136 mg/dL (< 200) LDL Cholesterol 60 mg/dL (< 100) HDL Cholesterol 58 mg/dL (40-59) Troponin I High Sensitivity 4 ng/L (</=34) Urine Color Yellow (Yellow) Urine Clarity Clear (Clear) Urine pH 6.0 (5.0-9.0) Urine Specific [place] 1.015 (1.001-1.035) Urine Protein Negative (Negative) Urine Ketones Negative (Negative) Urine Blood Negative /uL (Negative) Urine Nitrite Negative (Negative) Urine Bilirubin Negative (Negative) Urine Urobilinogen Normal mg/dL (Negative) Urine Leukocyte Esterase 3+ /uL (Negative) Urine RBC 1 /hpf (0 - 4) Urine WBC 89 /hpf (0 - 5) Urine Squamous Epithelial Cells Few /hpf (<5) Urine Bacteria Few /hpf (None Seen) Urine Glucose Normal mg/dL (Normal) Test 08/05/24 10:50 Erythrocyte Sedimentation Rate 7 mm/hr (0-20) C-Reactive Protein High Sensitivity 0.02 mg/dL (<1.0) B-Type Natriuretic Peptide 28.49 pg/mL (0-100) Other Laboratory Tests 08/08/24 06:36 Final Diagnosis/Problems List headaches Discharge Disposition: Home Discharge Instruct/Medications Diet: Consistent carbohydrate, Cardiac 2g Na,low cholest Activity: No Restrictions, As Tolerated Follow Up/Referral: neurologist next week. pain management 2 weeks Medications: Home medications Discharge Statement: "Patient was advised to return to the ER or call 911 if any headaches, dizziness, shortness of breath, chest pain, abdominal pain, bleeding, fevers, or worsening of medical condition. Patient was counseled about treatment plan, medications, possible side effects, patientverbalized understanding. All questions were answered to the best of my ability. This discharge took greater then 30 minutes in planning, reviewing documentation, counseling the patient, and discussing with other team members." ASSESSMENT ASSESSMENT Assessment headaches OLIVERIO DHALIWAL MD Aug 08, 2024 08:42
[2024-08-08 09:00] VITALS: BP 146/76; PULSE 60; RESP 17; TEMP 97.3; O2SAT 96
== END 2024-08-08 10:10 | disposition home or self-care (01) | DRG 103 ==
LOC: ER 09:48 → TELE 21:24 → TELE-WESTW 08-06 02:17
PROVIDERS: ADMIT Nurse Practitioner Family; ATTEND Nurse Practitioner Family
DX: G43.909 Migraine, unspecified, not intractable, without status migrainosus (principal); E66.9 Obesity, unspecified; E78.5 Hyperlipidemia, unspecified; I10 Essential (primary) hypertension; G89.29 Other chronic pain; Z68.28 Body mass index [BMI] 28.0-28.9, adult
CPT/HCPCS: 36415; 70450; 70551; 80048; 80061; 81001; 83036; 83880; 84484; 85025; 85652; 86141; 93005; 93306; 97116; 97163; 97530; G0378